=== PATIENT | female | born 1975 | race Caucasian/White ===

== ENCOUNTER 2022-08-06 19:03 | Emergency (ER) | payer OTHER ==
[~2022-08-06] VITALS: Ht 157.5 cm; Wt 60.0 kg
[~2022-08-06 19:03] MED LIST: CRUTCH1 EACH; ERYTHROMYCIN3.5 GM OPTH; GABAPENTIN100 MG PO; MIRAPEX0.5 MG PO; NAPROXEN500 MG PO; TRAMADOL HCL50 MG PO; ZOLOFT50 MG PO
--- OUTSIDE RECORDS SUMMARY | 2022-08-06 19:06 | XMS ---
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 Sherif has no Care Guidelines for this patient. Fredy VISIT COUNT (12 MO.) 1 FABIAN Sinclair TOTAL 1 NOTE: Visits indicate total known visits. ED/C VISIT TRACKING (12 MO.) 08/06/2022 19:04 FABIAN Demarco OR TYPE: Emergency COMPLAINT: - HEADACHE INPATIENT VISIT TRACKING (12 MO.) No inpatient visits to display in this time frame [email or web address]
== END 2022-08-06 21:02 | disposition home or self-care (01) ==
LOC: ED 19:03
DX: G43.909 Migraine, unspecified, not intractable, without status migrainosus (principal); F17.200 Nicotine dependence, unspecified, uncomplicated; Z88.0 Allergy status to penicillin; Z88.8 Allergy status to other drugs, medicaments and biological substances; Z79.899 Other long term (current) drug therapy
CPT/HCPCS: 96374; 96375; 99283-25; J0780; J1200; J1885; J7121

== ENCOUNTER 2024-07-24 12:01 | Emergency (ER) | payer OTHER ==
[~2024-07-24] VITALS: Ht 154.9 cm; Wt 62.6 kg
[~2024-07-24 12:01] MED LIST changes: +CYCLOBENZAPRINE10 MG PO; +DICLOFENAC SODI75 MG PO; +EFFEXOR XR37.5 MG PO; +HYDROXYZINE HCL50 MG PO; +NEURONTIN300 MG PO; +OSTERA TABLET1 EACH PO; +OXYCODONE HCL5 MG PO
--- OUTSIDE RECORDS SUMMARY | 2024-07-24 12:08 | XMS ---
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 Fredy VISIT COUNT (12 MO.) 1 FABIAN Sinclair TOTAL 1 NOTE: Visits indicate total known visits. ED/UCC VISIT TRACKING (12 MO.) 07/24/2024 12:02 FABIAN Demarco OR TYPE: Emergency COMPLAINT: - BACK PAIN INPATIENT VISIT TRACKING (12 MO.) No inpatient visits to display in this time frame [email or web address]
[2024-07-24] MEDS ORDERED: MELOXICAM7.5 MG PO (13:10)
[2024-07-24] MEDS ORDERED: ONDANSETRON 4 MG TAB ODT SL ONE (14:15)
[2024-07-24] MEDS ORDERED: HYDROCODONE/ACETA 5/325 TAB PO ONE (14:15)
[2024-07-24] MEDS ORDERED: PREDNISONE20 MG PO (15:43)
[2024-07-24] MEDS ORDERED: CYCLOBENZAPRINE10 MG PO (15:43)
[2024-07-24 15:51] VITALS: BP 117/77
== END 2024-07-24 15:50 | disposition home or self-care (01) ==
LOC: ED 12:01
DX: M54.50 Low back pain, unspecified (principal); F17.200 Nicotine dependence, unspecified, uncomplicated; Z88.6 Allergy status to analgesic agent; Z88.0 Allergy status to penicillin; Z88.1 Allergy status to other antibiotic agents; Z79.899 Other long term (current) drug therapy
CPT/HCPCS: 72100; 99283; A9270

== ENCOUNTER 2025-05-13 15:10 | Emergency (ER) | payer OTHER ==
[~2025-05-13] VITALS: Ht 154.9 cm; Wt 60.0 kg
[~2025-05-13 15:10] MED LIST changes: +MELOXICAM7.5 MG PO; +PREDNISONE20 MG PO
--- OUTSIDE RECORDS SUMMARY | 2025-05-13 15:16 | XMS ---
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 PHONE: [phone] -Shawn- Dentist: Material Dispatcher [facility] PHONE: [phone] [facility] Current CARE SYSTEM \F\ <UNAVAIL> PHONE: [phone] Sherif has no Care Guidelines for this patient. E.D. VISIT COUNT (12 MO.) 2 FABIAN Sinclair TOTAL 2 NOTE: Visits indicate total known visits. 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
[2025-05-13 16:30] LABS: BASOPHILS 0.5 % (0.1-1.2); EOSINOPHILS 1.4 % (0.7-5.8); LYMPHOCYTES 27.1 % (19.3-51.7); MCH 27.7 PG (25.6-32.2); MCHC 32.2 g/dL (32.2-35.5); MCV 86.0 fL (79.4-94.8); MONOCYTES 7.4 % (4.7-12.5); NEUTROPHILS 63.2 % (34.0-71.1); RBC 4.37 M/uL (3.93-5.22)
[2025-05-13 16:34] LABS: BLOOD/HGB, URINE NEGATIVE (Negative); KETONE, URINE >=80 (Negative); LEUK ESTERASE, URINE NEGATIVE (negative); NITRITE, URINE NEGATIVE (negative)
[2025-05-13 16:46] LABS: ALT (SGPT) 19.0 U/L (14-59); AST (SGOT) 20.0 U/L (15-37); GLOMERULAR FILTRATION RATE,EST 77.0 mL/min (>60); PROTEIN, TOTAL 6.8 g/dL (6.4-8.2); UREA NITROGEN 32.0 mg/dL (7-18)
[2025-05-13] MEDS ORDERED: HYDROmorphone HCL 1 MG/ML SYR IV ONE (17:00)
[2025-05-13] MEDS ORDERED: SODIUM CHLORIDE 0.9% 1,000 ML IV PRN (17:00)
[2025-05-13 18:40] VITALS: BP 107/70
== END 2025-05-13 18:40 | disposition home or self-care (01) ==
LOC: ED 15:10
PROVIDERS: Emergency Medicine
DX: R10.30 Lower abdominal pain, unspecified (principal); F17.200 Nicotine dependence, unspecified, uncomplicated; Z88.8 Allergy status to other drugs, medicaments and biological substances; Z88.1 Allergy status to other antibiotic agents; Z79.899 Other long term (current) drug therapy
CPT/HCPCS: 36415; 74177; 80053; 81003; 83690; 83735; 85025; 96374; 96375; 99284-25; J1171; J2405; J7030; Q9967